=== PATIENT | male | born 1965 | race Caucasian/White ===

== ENCOUNTER 2022-04-04 17:45 | Emergency (ER) | payer OTHER ==
--- OUTSIDE RECORDS SUMMARY | 2022-04-04 17:49 | XMS REPORT | Continuity of Care Document ---
:1965 Author Organization [facility] t Address [address] [place] [address] Care Team Providers Name Role Phone PCP, PATIENT DOES NOT HAVE A Primary Care Physician Unavaila CAS Phipps Attending Clinician Unavailable Nurse, Adc Pob Immunization Attending Clinician Unavailable Cas Long DO Attending Clinician NAHEED YANCEY Attending Clinician Unavailable Payers Payer Name Policy Type Policy Number Effective Date Expiration Date S jarett CHAMBERS O [id number] 2015 00:00:00 Problems This patient has no known problems. Allergies, Adverse Reactions, Alerts Allergy Allergy Status Severity Reaction(s) Onset Inactive Treating Comm ents Source Name Type Date Date Clinician Naproxen Propensi Active Rash Univer s ty to 11-27 ity of adverse 00:00: [place] reaction [address] [place] [address] s [place] NAPROXEN DRUG Active Rash Univers INGREDI 11-27 ity of 00:00: [address] Social History Social Habit Start Date Stop Date Quantity Comments Source History of tobacco Snuff User Univer sity of use [facility] History [facility] University o f Alcohol Frequency [facility] edical Branch History [facility] University o f Alcohol Std Drinks [facility] History [facility] University o f Alcohol Binge [facility] al [place] Alcohol intake 2018-04-12 2018-04-12 0 /d University of 00:00:00 00:00:00 [facility] Tobacco use and 2015-11-28 2015-11-28 Current user Univers ity of exposure 00:00:00 00:00:00 [facility] Alcohol Comment 2015-11-28 2015-11-28 occ Universit y of 00:00:00 00:00:00 [facility] Sex [birth year] At [birth year] Universit y of 00:00:00 00:00:00 [facility] Smoking Status Start Date Stop Date Source Never smoker [facility] Medications Ordered Filled Start Stop Current Ordering Indication Dosage Frequency Signature Comments Components Source Medication Medication Date Date Medication? Clinician (SIG) Name Name aspirin 81 2017-05 Yes 81mg Take 81 mg U nivers mg chewable 2-11 by mouth ity of tablet 10:12: daily. [address] Branch omeprazole 2017-05 Yes 40mg Take 40 mg U nivers (PRILOSEC) 2-11 by mouth ity o f 40 mg 10:12: daily. [place] capsule [address] [place] [address] bromphenira 2017-05 Yes [id number] 5mL Take 5 mL Univers mine-pseudo 2-11 by mouth 4 it y of ephedrine-D 00:00[place] (BROMFED 00 times Medical DM) 2-30-10 daily as Bran ch mg/5 mL needed for syrup Congestion /Allergies or Cough. methylPREDN 2017-05 Yes [id number] Take by Univers ISolone 4 2-11 mouth ity of mg tablets 00:00: SEE-INSTRU T [place] 00 CTIONS. Medical follow Branch package directions Immunizations Ordered Filled Immunization Date Status Comments Tiffany correia Immunization Name Name SARS-COV-2 COVID-19 2021-04-09 Completed Unive rsity of MODERNA BOOSTER [facility] V[facility] Branch SARS-COV-2 COVID-19 2020-07-28 Completed Unive rsity of MODERNA VACCINE 00:00:00 [facility] SARS-COV-2 COVID-19 2020-06-30 Completed Unive rsity of MODERNA VACCINE 00:00:00 [facility] Branch Procedures Procedure Date / Time Performed Performing Clinician Tiffany correia SARS-COV-2 COVID-19 2021-04-09 20:54:37 Doctor Unassigned, No [facility] [place] VACCINE Name Medical Branch BOOSTER,0.25ML,IM (MODERNA) Encounters Start End Encounter Admission Attending Care Care Encounter Source Date/Time Date/Time Type Type Clinicians Facility Department ID 2021-04-09 2021-04-09 Outpatient Nannette LONG [facility] [id number] Univers 15:30:00 14:32:12 CAS rylie [facility] 2021-04-09 2021-04-09 Imm/Inj Nurse, Adc Pob Immunization [facility] [id number] Univers 14:30:13 14:32:12 Visit Cas Long [id number] [facility] [id number] Jaden gutierrez PROFESSIO [id number] Wy dical [address] 2020-07-28 2020-07-28 [facility] [id number] Univers 12:05:00 12:05:00 [facility] 2020-06-30 2020-06-30 Outpatient Nannette YANCEY [facility] [id number] Univers 15:00:00 15:00:00 NAHEED [facility] Results This patient has no known results.
[2022-04-04] MEDS ORDERED: CEFAZOLIN SODIUM 1 GM/VIAL ONE (18:32)
[2022-04-04] MEDS ORDERED: FENTANYL CITR 100 MCG/2 ML ONE (18:32)
[2022-04-04] MEDS ORDERED: ONDANSETRON 4 MG/2 ML VIAL ONE (18:33)
[2022-04-04] MEDS ORDERED: TETANUS & DIPHTHERIA TOX,ADULT 0.5 ML VIAL ONE (18:33)
[2022-04-04] MEDS ORDERED: LIDOCAINE 1% 20 ML MDV ONE (18:33)
[2022-04-04] MEDS ORDERED: NA CHLORIDE 0.9% 1,000 ML ONE (18:33)
[2022-04-04 18:40] LABS: Absolute Lymphocytes (CBC) 1.5 K/uL (0.7-4.9); MPV 8.3 fL (7.6-11.3); RBC Red Blood Cell Count 4.95 M/uL (4.33-5.43)
[2022-04-04 18:43] LABS: Albumin 3.8 g/dL (3.4-5.0); Bilirubin Direct 0.1 mg/dL (0-0.2); Bilirubin Total 0.5 mg/dL (0.2-1.0); Potassium 3.5 mmol/L (3.5-5.1); Protein, Total 7.6 g/dL (6.4-8.2)
[2022-04-04] MEDS ORDERED: NA CHLORIDE 0.9% 50 ML IV ONE (18:57)
--- NOTE | 2022-04-04 19:11 | RAD REPORT ---
EXAM DESCRIPTION: RAD - Knee Left 3 View - 04/04/2022 6:51 pm CLINICAL HISTORY: Left knee pain FINDINGS: No fracture or dislocation is seen.
--- NOTE | 2022-04-04 19:12 | RAD REPORT ---
EXAM DESCRIPTION: RAD - Knee Right 3 View - 04/04/2022 6:51 pm CLINICAL HISTORY: Right knee pain FINDINGS: No fracture or dislocation is seen.
--- NOTE | 2022-04-04 19:27 | RAD REPORT ---
EXAM DESCRIPTION: CT - Head C Spine Ady Henriquez - 04/04/2022 7:11 pm CLINICAL HISTORY: Head and neck injury with chest and abdominal pain status post fall. Head and neck pain . TECHNIQUE: Computed axial tomography of the head and cervical spine was obtained Computed axial tomography of the chest, abdomen and pelvis was obtained. 100 cc Isovue-300 was given intravenously coronal and sagittal reconstruction was performed. All CT scans are performed using dose optimization technique as appropriate and may include automated exposure control or mA/KV adjustment according to patient size. FINDINGS: An intracranial bleed is not seen. The ventricles are normal in caliber. An extra-axial fl uid collection is not noted. No significant hypodensity within the brain A cervical fracture is not seen. No dislocation is seen. A mediastinal hematoma is not noted. A pleural effusion is not present. A lung contusion is not seen. The liver, spleen, pancreas, adrenals, kidneys and bladder do not demonstrate an acute traumatic inju ry Ankylosing spondylitis sacroiliac joints 4 millimeter nodule right middle lobe IMPRESSION: No acute intracranial abnormality is seen A cervical fracture is not visualized. If the patient continues have symptoms to suggest intracranial /spinal cord pathology then MRI would be recommended. No acute traumatic injury involving the chest, abdomen or pelvis is seen. 4 millimeter nodule right middle lobe. If the patient is high risk then CT chest in 6-12 months would be recommended for re-evaluation
--- NOTE | 2022-04-04 19:31 | RAD REPORT ---
EXAM DESCRIPTION: CT - Facial Bones W/ Mpr - 04/04/2022 7:12 pm CLINICAL HISTORY: Facial injury status post fall/pain COMPARISON: None TECHNIQUE: Computed axial tomography of the face was obtained. Coronal and sagittal reconstruction w as performed. All CT scans are performed using dose optimization technique as appropriate and may include automated exposure control or mA/KV adjustment according to patient size. FINDINGS: Swelling anterior to the right nasal bridge and orbit. No fracture seen A TMJ dislocation is not noted. The globes are intact. Fluid within the sinuses is not seen. IMPRESSION: Negative for a facial fracture.
--- NOTE | 2022-04-04 19:32 | RAD REPORT ---
EXAM DESCRIPTION: RAD - Ankle Right 3 View - 04/04/2022 6:51 pm CLINICAL HISTORY: Right ankle pain FINDINGS: A 4 x 1 millimeter bony/calcific density lies adjacent to the medial aspect of the calcane us. This probably is chronic. An acute avulsion fracture has a similar appearance should be correlate d clinically. No dislocation
--- NOTE | 2022-04-04 19:47 | EDPHYS ---
Physician Documentation [facility] Name: Aguilar Daily Age: 57 yrs Sex: Male : 1965 Arrival Date: 04/04/2022 Time: 17:[address] Private MD: ED Physician Kirby Nagy HPI: 04/04 18:00 This 57 yrs old Male presents to ER via Unassigned with complaints of Fall Injury. lana 18:00 This 57 yrs old Male presents to ER via Unassigned with complaints of Fall lana Injury. 18:00 Details of fall: The patient fell from a height, while climbing, approximately 10 feet. lana Onset: The symptoms/episode began/occurred just prior to arrival. Associated injuries: The patient sustained injury to the head, injury to the chest, injury to the abdomen, right leg and left leg, abrasion, contusion, decreased range of motion, ecchymosis. Severity of symptoms: At their worst the symptoms were mild, moderate, in the emergency department the symptoms are unchanged. The patient has not experienced similar symptoms in the past. Historical: - Allergies: 18:07 Naproxen; kb3 - Home Meds: 18:07 aspirin 81 mg Oral TbEC 1 tab once daily [Active]; lisinopril 10 mg Oral tab 1 tab once kb3 daily [Active]; omeprazole 20 mg Oral cpDR 1 cap once daily [Active]; - PMHx: 18:07 Hypertensive disorder; DEERING; GERD; DVT; kb3 - PSHx: 18:07 Vasectomy; kb3 - Immunization history: Last tetanus immunization: unknown. - Social history:: Smoking status: Patient denies any tobacco usage or history of. - Family history:: not pertinent. ROS: 18:02 Constitutional: Negative for fever, chills, and weight loss, Eyes: Negative for injury, lana pain, redness, and discharge, Neck: Negative for injury, pain, and swelling, Cardiovascular: Negative for chest pain, palpitations, and edema, Respiratory: Negative for shortness of breath, cough, wheezing, and pleuritic chest pain, Abdomen/GI: Negative for abdominal pain, nausea, vomiting, diarrhea, and constipation, Back: Negative for injury and pain, : Negative for injury, bleeding, discharge, and swelling, Neuro: Negative for headache, weakness, numbness, tingling, and seizure, Allergy/Immunology: Negative for hives, rash, and allergies, Endocrine: Negative for neck swelling, polydipsia, polyuria, polyphagia, and marked weight changes, Hematologic/Lymphatic: Negative for swollen nodes, abnormal bleeding, and unusual bruising. 18:02 ENT: Positive for injury or acute deformity, nose bleed. 18:02 MS/extremity: Positive for abrasion, decreased range of motion, pain, of the right leg and left leg. Exam: 18:02 Constitutional: This is a well developed, well nourished patient who is awake, alert, lana and in no acute distress. Eyes: Pupils equal round and reactive to light, extra-ocular motions intact. Lids and lashes normal. Conjunctiva and sclera are non-icteric and not injected. Cornea within normal limits. Periorbital areas with no swelling, redness, or edema. ENT: Nares patent. No nasal discharge, no septal abnormalities noted. Tympanic membranes are normal and external auditory canals are clear. Oropharynx with no redness, swelling, or masses, exudates, or evidence of obstruction, uvula midline. Mucous membranes moist. Neck: Trachea midline, no thyromegaly or masses palpated, and no cervical lymphadenopathy. Supple, full range of motion without nuchal rigidity, or vertebral point tenderness. No Meningismus. Chest/axilla: Normal chest wall appearance and motion. Nontender with no deformity. No lesions are appreciated. Cardiovascular: Regular rate and rhythm with a normal S1 and S2. No gallops, murmurs, or rubs. Normal PMI, no JVD. No pulse deficits. Respiratory: Lungs have equal breath sounds bilaterally, clear to auscultation and percussion. No rales, rhonchi or wheezes noted. No increased work of breathing, no retractions or nasal flaring. Back: No spinal tenderness. No costovertebral tenderness. Full range of motion. Male : Normal genitalia with no discharge or lesions. Psych: Awake, alert, with orientation to person, place and time. Behavior, mood, and affect are within normal limits. 18:02 Head/face: Noted is contusion, ecchymosis, hematoma, a laceration(s), that is deep, 2 cm(s), swelling, that is mild, of the nose. 18:02 ENT: Mouth: Oral mucosa: on the frenulum, Gums: swollen, on the frenulum, Posterior pharynx: no acute changes, Airway: normal, no evidence of obstruction, Tonsils: are normal in appearance. 18:02 Musculoskeletal/extremity: ROM: limited active range of motion due to pain, limited passive range of motion due to pain, in all extremities, Circulation is intact in all extremities. Sensation intact. Compartment Syndrome exam of affected extremity: is normal. Vital Signs: 17:56 BP 169 / 100; Pulse 95; Resp 20; Temp 98; Pulse Ox 98% ; Weight 106.59 kg; Height 5 ft. kb3 11 in. (180.34 cm); Pain 8/10; 19:00 BP 122 / 51; Pulse 93; Resp 16; Pulse Ox 95% on R/A; eh3 20:00 BP 131 / 50; Pulse 94; Resp 18; Pulse Ox 96% on R/A; eh3 17:56 Body Mass Index 32.78 (106.59 kg, 180.34 cm) kb3 Cadogan Coma Score: 17:56 Eye Response: spontaneous(4). Verbal Response: oriented(5). Motor Response: obeys kb3 commands(6). Total: 15. 19:42 Eye Response: spontaneous(4). Verbal Response: oriented(5). Motor Response: obeys lana commands(6). Total: 15. Trauma Score (Adult): 17:56 Eye Response: spontaneous(1); Verbal Response: oriented(1); Motor Response: obeys kb3 commands(2); Systolic BP: > 89 mm Hg(4); Respiratory Rate: 10 to 29 per min(4); Eugene Score: 15; Trauma Score: 12 Laceration: 19:45 Wound Repair of 2.5cm ( 1.0in ) subcutaneous laceration to frenulum and mouth. lana Irregularly shaped.. Distal neuro/vascular/tendon intact. Anesthesia: Local anesthetic administered with 6 mls of 1% lidocaine. Wound prep: Simple cleansing by sc. Skin closed with 2 5-0 Vicryl using interrupted sutures and sterile technique. Dressed with none. Patient tolerated well. MDM: 17:48 Patient medically screened. [facility] 19:42 Differential diagnosis: Contusion of Hematoma on Laceration of Intracranial bleed- lana Concussion cerebral contusion, closed fracture, contusion, fracture, sprain. Differential diagnosis: abrasion, closed head injury, contusion, fracture, laceration, multiple trauma, sprain, strain. Data reviewed: vital signs, nurses notes, lab test result(s), EKG, radiologic studies, CT scan, plain films. Data interpreted: hospital monitor: rate is 95 beats/min, rhythm is regular, Pulse oximetry: on room air is 98 %. Test interpretation: by ED physician or midlevel provider: ECG, plain radiologic studies. Counseling: I had a detailed discussion with the patient and/or guardian regarding: the historical points, exam findings, and any diagnostic results supporting the discharge/admit diagnosis, lab results, radiology results, the need for outpatient follow up, for definitive care, a family practitioner, a general surgeon. 04/04 17:55 Order name: Basic Metabolic Panel; Complete Time: 18:50 [facility] 04/04 17:55 Order name: CBC with Diff; Complete Time: 18:50 [facility] 04/04 17:55 Order name: Type And Screen; Complete Time: 20:18 [facility] 04/04 17:55 Order name: CT Traumagram (Head C Spine CAP W Con); Complete Time: 19:40 [facility] 04/04 17:55 Order name: LFT's; Complete Time: 18:50 [facility] 04/04 17:55 Order name: Lipase; Complete Time: 18:50 [facility] 04/04 17:55 Order name: Knee Left 3 View XRAY; Complete Time: 19:40 [facility] 04/04 17:55 Order name: Knee Right 3 View XRAY; Complete Time: 19:40 [facility] 04/04 17:55 Order name: Ankle Right 3 View XRAY; Complete Time: 19:40 [facility] 04/04 17:55 Order name: CT Facial Bones W/O Con; Complete Time: 19:40 [facility] 04/04 19:41 Order name: INCENTIVE SPIROMETRY 04/04 17:55 Order name: Labs collected and sent; Complete Time: 18:19 [facility] 04/04 17:58 Order name: Ice pack; Complete Time: 18:28 [facility] 04/04 17:59 Order name: Dressing - Wound; Complete Time: 20:12 [facility] 04/04 17:59 Order name: Gloves, Sterile; Complete Time: 18:19 [facility] 04/04 17:59 Order name: Setup Suture Tray; Complete Time: 18:19 [facility] 04/04 17:59 Order name: Vicryl, Sutures; Complete Time: 18:19 [facility] 04/04 18:06 Order name: EKG; Complete Time: 18:07 [facility] 04/04 18:06 Order name: EKG - Nurse/Tech; Complete Time: 18:28 [facility] 04/04 19:46 Order name: Wound dressing; Complete Time: 20:13 lana Administered Medications: 18:40 Drug: NS 0.9% 1000 ml Route: IV; Rate: 1 bolus; Site: left antecubital; eh3 20:13 Follow up: IV Status: Completed infusion; IV Intake: 1000ml eh3 18:40 Drug: Zofran (Ondansetron) 4 mg Route: IVP; Site: left antecubital; eh3 19:59 Follow up: Response: No adverse reaction eh3 18:42 Drug: fentaNYL (PF) 50 mcg Route: IVP; Site: left antecubital; eh3 19:59 Follow up: Response: Pain is decreased eh3 18:47 Drug: Tetanus Toxoid,Adsorbed 0.5 ml {Sorting And Folding Supervisor: Tablo. Exp: 10/04/2023. Lot eh3 #: [id number]. } Route: IM; Site: left deltoid; 19:59 Follow up: Response: No adverse reaction eh3 20:13 Follow up: Response: (VIS) Vaccine information sheet provided today. Questions and/or [facility] concerns addressed. VIS edition date: Dec 06, 2020.; No adverse reaction 19:59 Drug: Lidocaine (1 %) 10 ml {Note: administered by Dr Nagy.} Volume: 20 ml; Route: eh3 Infiltration; 20:00 Drug: Ancef (cefazolin) 1 grams Route: IVPB; Site: left antecubital; eh3 20:12 Follow up: Response: No adverse reaction; IV Status: Completed infusion; IV Intake: [id number] 20:00 Drug: KeFLEX (cephalexin) 500 mg Route: PO; eh3 20:37 Follow up: Response: No adverse reaction eh3 20:13 Drug: Mott (HYDROcodone-acetaminophen) 10 mg-325 mg 1 tabs Route: PO; eh3 20:37 Follow up: Response: No adverse reaction eh3 20:14 Drug: Neosporin (ozgxiapu-aginwcqwnr-apxpubbkn) Ointment 1 application Route: Topical; eh3 Site: affected area; Disposition Summary: 04/04/22 19:46 Discharge Ordered Location: Home lana Problem: new lana Symptoms: have improved lana Condition: Stable lana Diagnosis - Fall (on) (from) other stairs and steps - 10 lana - Epistaxis - TRUMATIC lana - Abrasion, left knee lana - Abrasion, right knee lana - Laceration without foreign body of oral cavity - UPPER INNER LIP lana - Sprain of other ligament of right ankle lana Followup: lana - With: Private Physician - When: 2 - 3 days - Reason: Recheck today's complaints, Continuance of care, Re-evaluation by your physician Followup: lana - With: - When: 2 - 3 days - Reason: Recheck today's complaints, Re-evaluation by your physician Followup: lana - With: - When: 2 - 3 days - Reason: Recheck today's complaints, Continuance of care, Re-evaluation by your physician Discharge Instructions: - Discharge Summary Sheet lana - Ankle Sprain lana - Nosebleed, Adult lana - Fall Prevention in the Home, Adult lana - Contusion lana - Rib Contusion lana - Ankle Sprain, Yyot-kn-Yvon lana - Nosebleed, Adult, Cxdd-nw-Rcac lana - Contusion, Podn-bo-Hkhu lana - Blunt Chest Trauma lana - Mouth Laceration lana - Mouth Laceration, Ulnh-ey-Luhh lana Forms: - Medication Reconciliation Form lana - Thank You Letter lana - Antibiotic Education lana - Prescription Opioid Use [facility] Prescriptions: - Cephalexin 500 mg Oral Capsule - take 1 capsule by ORAL route every 6 hours for 10 days; 40 capsule; Refills: 0, [facility] Product Selection Permitted - Cyclobenzaprine 5 mg Oral Tablet - take 1 tablet by ORAL route 3 times per day As needed; 15 tablet; Refills: 0, [facility] Product Selection Permitted - Tylenol-Codeine #3 300 mg-30 mg Oral - take 2 tablet by ORAL route every 6 hours; 24 tablet; Refills: 0, Product [facility] Selection Permitted Signatures: Dispatcher [employer] Kirby Edwards MD MD cha Hall, Erin, RN RN eh3 Gabriela Jenkins RN RN kb3 Sultana Elder PAHermelindaC PAHermelindaC sb4 Corrections: (The following items were deleted from the chart) 20:37 19:47 Crutches ordered. lana eh3
--- NOTE | 2022-04-04 19:47 | ER ---
Nurse's Notes [facility] Name: Aguilar Daily Age: 57 yrs Sex: Male : 1965 Arrival Date: 04/04/2022 Time: 17:[address] Private MD: Diagnosis: Fall (on) (from) other stairs and steps-10;Epistaxis-TRUMATIC;Abrasion, left knee;Abrasion, right knee;Laceration without foreign body of oral cavity-UPPER INNER LIP;Sprain of other ligament of right ankle Presentation: 04/04 17:56 Chief complaint: Spouse and/or significant other states: Pt was at top of 10-ft ladder kb3 hanging Kayla lights when the ladder slid to the ground approximately 1 hr [employer]. Unknown if pt struck face upon landing or on garage door as ladder slid down with possible LOC. Pt reports he remembers hanging lights and then waking up in a lawn chair. Spouse reports repetitive questioning and pt with no memory of the events. Care prior to arrival: None. Mechanism of Injury: Fall from ladder approximately 10 feet. Trauma event details: Injury occurred in the [facility], Injury occurred: at home. Injury occurred: April 04, 2022 Injury occurred at: 17:00. 17:56 Acuity: VINNY 2 kb3 17:56 Method Of Arrival: Ambulatory kb3 18:06 Coronavirus screen: Vaccine status: Patient reports receiving the 2nd dose of the covid kb3 vaccine. Client denies travel out of the [place] in the last 14 days. Ebola Screen: Patient negative for fever greater than or equal to 101.5 degrees Fahrenheit, and additional compatible Ebola Virus Disease symptoms Patient denies exposure to infectious person. Patient denies travel to an Ebola-affected area in the 21 days before illness onset. Initial Sepsis Screen: Does the patient meet any 2 criteria? No. Patient's initial sepsis screen is negative. Does the patient have a suspected source of infection? No. Patient's initial sepsis screen is negative. Risk Assessment: Do you want to hurt yourself or someone else? Patient reports no desire to harm self or others. Onset of symptoms was April 04, 2022 at 17:00. Trauma Activation: Alert Physician: ED Physician; Name: Dr Nagy; Notified At: 17:50; Arrived At: Physician: General Surgeon; Name: ; Notified At: 17:50; Arrived At: Physician: Radiology; Name: ; Notified At: 17:50; Arrived At: Physician: Respiratory; Name: ; Notified At: 17:50; Arrived At: Physician: Lab; Name: ; Notified At: 17:50; Arrived At: Historical: - Allergies: 18:07 Naproxen; kb3 - Home Meds: 18:07 aspirin 81 mg Oral TbEC 1 tab once daily [Active]; lisinopril 10 mg Oral tab 1 tab once kb3 daily [Active]; omeprazole 20 mg Oral cpDR 1 cap once daily [Active]; - PMHx: 18:07 Hypertensive disorder; [place]; GERD; DVT; kb3 - PSHx: 18:07 Vasectomy; kb3 - Immunization history: Last tetanus immunization: unknown. - Social history:: Smoking status: Patient denies any tobacco usage or history of. - Family history:: not pertinent. Screenin:56 Abuse screen: Denies threats or abuse. Denies injuries from another. Tuberculosis kb3 screening: No symptoms or risk factors identified. 17:56 Nutritional screening: No deficits noted. Fall Risk Fall in past 12 months (25 points). eh3 IV access (20 points). Total Mariscal Fall Scale indicates High Risk Score (45 or more points). Fall prevention measures have been instituted. Side Rails Up X 2 Placed Close to Nursing Station Frequent Obs/Assessments Occuring Family Present and informed to notify staff if the need to leave the bedside As available patient and family educated on Fall Prevention Program and Strategies. Primary Survey: 17:56 NO uncontrolled hemorrhage observed. A: The client is awake and alert. The airway is kb3 patent. Breathing/Chest: Spontaneous respiratory effort, equal unlabored respirations, breath sounds clear bilaterally, regular pattern, symmetrical chest rise and fall. Circulation: No external hemorrhage present. Regular and strong central pulse, skin warm/dry/normal color. Disability Pupils are equal, round, reactive to light and accommodation. Client is alert. Exposure/Environment: There is no evidence of uncontrolled external bleeding. Reassessment Alertness and Airway: Awake and alert. The airway is patent. Breathing: Spontaneous respiratory effort, equal unlabored respirations, breath sounds clear bilaterally, regular pattern with symmetrical chest rise and fall. Circulation: No external hemorrhage noted. Regular and strong central pulse, skin warm/dry/normal color. Disability: Alert. Assessment: 17:56 General: Appears in no apparent distress. uncomfortable, Behavior is calm, cooperative. kb3 Pain: Complains of pain in right ankle, right isaacs, left isaacs, nose and upper lip Pain does not radiate. Pain currently is 8 out of 10 on a pain scale. Quality of pain is described as aching. 17:56 Neuro: Level of Consciousness is awake, alert, obeys commands, Oriented to person, eh3 place, time, situation. Cardiovascular: Capillary refill < 3 seconds Patient's skin is warm and dry. Respiratory: Airway is patent Respiratory effort is even, unlabored, Respiratory pattern is regular, symmetrical. GI: Abdomen is round non-distended. : No signs and/or symptoms were reported regarding the genitourinary system. EENT: No signs and/or symptoms were reported regarding the EENT system. Derm: Wound noted frenulum and mouth and nose and right isaacs and left isaacs and upper lip. Musculoskeletal: Circulation, motion, and sensation intact. Range of motion: intact in all extremities. 19:00 Reassessment: Patient and/or family updated on plan of care and expected duration. Pain eh3 level reassessed. Patient is alert, oriented x 3, equal unlabored respirations, skin warm/dry/pink. 20:00 Reassessment: Patient and/or family updated on plan of care and expected duration. Pain eh3 level reassessed. Patient is alert, oriented x 3, equal unlabored respirations, skin warm/dry/pink. Vital Signs: 17:56 BP 169 / 100; Pulse 95; Resp 20; Temp 98; Pulse Ox 98% ; Weight 106.59 kg; Height 5 ft. kb3 11 in. (180.34 cm); Pain 8/10; 19:00 BP 122 / 51; Pulse 93; Resp 16; Pulse Ox 95% on R/A; eh3 20:00 BP 131 / 50; Pulse 94; Resp 18; Pulse Ox 96% on R/A; eh3 17:56 Body Mass Index 32.78 (106.59 kg, 180.34 cm) kb3 Eugene Coma Score: 17:56 Eye Response: spontaneous(4). Verbal Response: oriented(5). Motor Response: obeys kb3 commands(6). Total: 15. 19:42 Eye Response: spontaneous(4). Verbal Response: oriented(5). Motor Response: obeys lana commands(6). Total: 15. Trauma Score (Adult): 17:56 Eye Response: spontaneous(1); Verbal Response: oriented(1); Motor Response: obeys kb3 commands(2); Systolic BP: > 89 mm Hg(4); Respiratory Rate: 10 to 29 per min(4); [place] Score: 15; Trauma Score: 12 ED Course: 17:47 Patient arrived in ED. rg4 17:48 Kirby Nagy MD is Attending Physician. [facility] 17:56 Patient has correct armband on for positive identification. kb3 17:56 Bed in low position. Call light in reach. Side rails up X2. Adult w/ patient. Client 3 placed on continuous cardiac and pulse oximetry monitoring. NIBP monitoring applied. Door closed. Noise minimized. Warm blanket given. 17:56 Patient maintains SpO2 saturation greater than 95% on room air. kb3 17:56 Thermoregulation: warm blanket given to patient. eh3 18:03 Triage completed. kb3 18:07 Arm band placed on right wrist. Patient placed in an exam room, on a stretcher. kb3 18:15 Wound care: ice pack applied. eh3 18:18 Sejal Pang, RN is Primary Nurse. eh3 18:18 Initial lab(s) drawn, by ca, sent to lab. Inserted saline lock: 20 gauge in left mm9 antecubital area, using aseptic technique. Blood collected. 18:19 Lipase Sent. mm9 18:19 LFT's Sent. mm9 18:19 Basic Metabolic Panel Sent. mm9 18:19 CBC with Diff Sent. mm9 18:47 EKG done, by ED staff, reviewed by Kirby Nagy MD. mm9 18:53 Knee Left 3 View XRAY In Process Unspecified. EDMS 18:53 Knee Right 3 View XRAY In Process Unspecified. EDMS 18:53 Ankle Right 3 View XRAY In Process Unspecified. EDMS 19:13 CT Traumagram (Head C Spine CAP W Con) In Process Unspecified. EDMS 19:13 CT Facial Bones W/O Con In Process Unspecified. EDMS 19:45 Wound care: was cleaned with soaked in normal saline solution, Patient tolerated well. eh3 19:46 Marylou León MD is Referral Physician. [facility] 19:46 Satya Roberson MD is Referral Physician. [facility] 20:00 Dressings: Band aid x 3 right isaacs and left isaacs non-adherent dressing x 1 left knee x eh3 2 right knee. 20:55 No provider procedures requiring assistance completed. IV discontinued, intact, eh3 bleeding controlled, No redness/swelling at site. Pressure dressing applied. 20:57 INCENTIVE SPIROMETRY Sent. eh3 Administered Medications: 18:40 Drug: NS 0.9% 1000 ml Route: IV; Rate: 1 bolus; Site: left antecubital; 3 20:13 Follow up: IV Status: Completed infusion; IV Intake: 1000ml eh3 18:40 Drug: Zofran (Ondansetron) 4 mg Route: IVP; Site: left antecubital; eh3 19:59 Follow up: Response: No adverse reaction 3 18:42 Drug: fentaNYL (PF) 50 mcg Route: IVP; Site: left antecubital; eh3 19:59 Follow up: Response: Pain is decreased eh3 18:47 Drug: Tetanus Toxoid,Adsorbed 0.5 ml {Psychosocial Rehabilitation Counselor: ustyme. Exp: 10/04/2023. Lot 3 #: [id number]. } Route: IM; Site: left deltoid; 19:59 Follow up: Response: No adverse reaction eh3 20:13 Follow up: Response: (VIS) Vaccine information sheet provided today. Questions and/or [facility] concerns addressed. VIS edition date: Dec 06, 2020.; No adverse reaction 19:59 Drug: Lidocaine (1 %) 10 ml {Note: administered by Dr Nagy.} Volume: 20 ml; Route: eh3 Infiltration; 20:00 Drug: Ancef (cefazolin) 1 grams Route: IVPB; Site: left antecubital; eh3 20:12 Follow up: Response: No adverse reaction; IV Status: Completed infusion; IV Intake: [id number] 20:00 Drug: KeFLEX (cephalexin) 500 mg Route: PO; eh3 20:37 Follow up: Response: No adverse reaction 3 20:13 Drug: Dunbar (HYDROcodone-acetaminophen) 10 mg-325 mg 1 tabs Route: PO; 3 20:37 Follow up: Response: No adverse reaction eh3 20:14 Drug: Neosporin (clypquyb-phpokemokg-vkqknsfgn) Ointment 1 application Route: Topical; 3 Site: affected area; Medication: 20:55 Vaccine Information Statement (VIS) provided today. Questions and/or concerns 3 addressed. VIS edition date: April 04, 2022. Intake: 20:12 IV: 50ml; Total: 50ml. eh3 20:13 IV: 1000ml; Total: 1050ml. eh3 20:57 IV: 1050ml; Total: 2100ml. 3 Outcome: 19:46 Discharge ordered by . lana 20:56 Discharged to home ambulatory, with family. 3 20:56 Condition: stable 20:56 Discharge instructions given to patient, family, Instructed on discharge instructions, follow up and referral plans. medication usage, wound care, Demonstrated understanding of instructions, follow-up care, medications, wound care, Prescriptions given X 3. 20:56 Patient's length of stay in the Emergency Department was greater than 2 hours. 21:07 Patient left the ED. 3 Signatures: Dispatcher [employer] EDKirby Diaz MD MD cha Garcia, Rubi rg4 Sejal Pang RN RN 3 Gabriela Jenkins RN RN [email or web address] Meena Padilla mm9
[2022-04-04] MEDS ORDERED: NEOMYCIN/BAC/POLY OPTH 3.5GM ONE (20:04)
[2022-04-04] MEDS ORDERED: HYDROCODONE/APAP 10/325 TAB ONE (20:04)
[2022-04-04] MEDS ORDERED: CEPHALEXIN 250 MG CAP ONE (20:04)
[2022-04-04 21:11] VITALS: TEMP 98
[2022-04-04 21:14] VITALS: BP 131/50; O2SAT 96
--- NOTE | 2022-04-06 13:50 | EKG ---
Test Date: 2022-04-04 Test Time: 18:28:19 Briefcase Sewer: DIANDRA MEASUREMENT RESULTS: Intervals: Rate: 87 [place]: 156 QRSD: 90 QT: 358 QTc: 430 [place]: P: 59 [place]: 156 QRS: 49 T: -22 INTERPRETIVE STATEMENTS: Sinus rhythm with occasional premature ventricular complexes T wave abnormality, consider inferior ischemia Abnormal ECG No previous ECG available for comparison Electronically Signed On 04-06-22 13:49:17 [employer] by Abhinav Casey
== END 2022-04-04 21:07 | disposition home or self-care (01) ==
LOC: ER 17:45
PROC: 0CQ0XZZ Repair Upper Lip, External Approach (ICD-10-PCS; principal; 2022-04-04)
DX: S01.511A Laceration without foreign body of lip, initial encounter (principal); R04.0 Epistaxis; S93.491A Sprain of other ligament of right ankle, initial encounter; S80.212A Abrasion, left knee, initial encounter; S80.211A Abrasion, right knee, initial encounter; W10.8XXA Fall (on) (from) other stairs and steps, initial encounter; Z23 Encounter for immunization; I10 Essential (primary) hypertension; Z88.6 Allergy status to analgesic agent
CPT/HCPCS: 96361; 93005; 85025; 80048; 36415; 86900; 86850; 86901; 80076; 83690; 70450; 72125; 71260; 70486; 76377; 74177; 73562 ×2; 73610; 90471; 90714; 96375; 96374; 99285; 12011; Q9967; J3010; J7030; J2405; J0690